=== PATIENT | female | born 1980 | race Caucasian/White ===

== ENCOUNTER 2017-07-06 12:36 | Emergency (ER) | payer MEDICAID, OTHER ==
[~2017-07-06] VITALS: Ht 165.1 cm; Wt 60.0 kg
[~2017-07-06 12:36] MED LIST: LEVO112T2 PO
[2017-07-06 12:37] VITALS: BP 99/53; PULSE 80; RESP 16; TEMP 97.6; O2SAT 98
--- NOTE | 2017-07-06 13:23 | RADRPT ---
EXAM DATE/TIME: 07/06/2017 13:03 [facility] COMPARISON: No previous studies available for comparison. INDICATIONS : Fell while rollerblading 1 hour ago. MEDICAL HISTORY : None. SURGICAL HISTORY : None. ENCOUNTER: Initial ACUITY: 1 day PAIN SCORE: 5/10 LOCATION: Left upper extremity wrist radial side FINDINGS: Three view examination of the left wrist demonstrates a comminuted intra-articular fracture of the di stal radius. There is angulation of the fracture on the lateral view. Possible small avulsion injury involving the ulnar styloid process. The carpal bones are grossly intact.. CONCLUSION: Intra-articular Colles' type fracture involving the distal radius. Petr Johnson MD on July 06, 2017 at 13:21 Board Certified Radiologist. This report was verified electronically.
[2017-07-06] MEDS ORDERED: ACETAMINOPHEN/HYDROcodone 325 MG/5 MG TAB PO ONE (13:45)
--- NOTE | 2017-07-06 13:53 | PD ---
HPI Chief Complaint: Musculoskeletal Complaint Time Seen by Provider: 13:05 Travel History International Travel<30 days: No Contact w/Intl Traveler<30days: No Traveled to known affect area: No History of Present Illness HPI This is a 37-year-old female here with left wrist pain after she fell while rollerblading onto an outstretched hand. Injury occurred prior to arrival. Denies paresthesia or weakness of the extremity. Reports pain in the wrist. Can freely move the fingers. Symptom severity is moderate. Pain is worse with attempted movement and slightly depressed. No other injuries. No head injury or loss consciousness. PFSH Past Medical History Medical History: Denies Significant Hx Asthma: Yes Thyroid Disease: Yes Influenza Vaccination: No ?: Not LMP: CURRENT Past Surgical History Surgical History: No Previous Surgery Social History Alcohol Use: Yes (COUPLE TIMES PER WEEK) Tobacco Use: Yes (1/2 PPD) Substance Use: No Allergies-Medications (Allergen,Severity, Reaction): Coded Allergies: Sulfa (Sulfonamide Antibiotics) (Unverified Allergy, Intermediate, HIVES, 07/06/17) Reported Meds & Prescriptions Reported Meds & Active Scripts Active Reported Levothyroxine (Levothyroxine Sodium) 112 Mcg Tab 112 Mcg PO DAILY Review of Systems Except as stated in HPI: all other systems reviewed are Neg General / Constitutional: No: Fever Eyes: No: Visual changes HENT: No: Headaches Cardiovascular: No: Chest Pain or Discomfort Respiratory: No: Shortness of Breath Gastrointestinal: No: Abdominal Pain Genitourinary: No: Dysuria Physical Exam Narrative GENERAL: Alert and well-appearing 29-year-old female. SKIN: Warm and dry. Superficial Abrasion to the right elbow. HEAD: Normocephalic. EYES: No injection or drainage. NECK: Supple. No midline spine tenderness. CARDIOVASCULAR: Regular rate and rhythm without murmurs, gallops, or rubs. RESPIRATORY: Breath sounds equal bilaterally. No accessory muscle use. GASTROINTESTINAL: Abdomen soft, non-tender, nondistended. MUSCULOSKELETAL: No cyanosis. Left upper extremity: Notable swelling to the left wrist. Palpable radial pulse. Patient can freely move the fingers. Normal sensation distally. Brisk cap refill. BACK: Nontender cervical, thoracic, lumbar spine. Without obvious deformity. No CVA tenderness. Data Data Last Documented VS Vital Signs Date Time Temp Pulse Resp B/P (MAP) Pulse Ox O2 Delivery O2 Flow Rate FiO2 07/06/17 12:37 97.6 80 16 99/53 (68) 98 Orders Orders Wrist, Complete ([id number]) (07/06/17 12:48) Splint Or Brace Apply/Monitor (07/06/17 13:36) Acetamin-Hydrocod 325-5 Mg (Cordova 5-325 (07/06/17 13:45) MDM Medical Decision Making Medical Screen Exam Complete: Yes Emergency Medical Condition: Yes Differential Diagnosis Fracture, sprain, dislocation Narrative Course 37-year-old female here with left wrist pain after she fell onto an outstretched hand. The extremity is neurovascularly intact. Palpable radial pulse. Good perfusion. Normal sensation. X-ray reveal an intra-articular Colles' type fracture involving the distal radius. Patient was placed in a sugar tong splint and sling by [place]. Patient is to follow-up with orthopedic this week. She was referred to the on-call orthopedic Dr. Hoang. In port and to follow-up with stress to patient. She will be given a prescription for Cordova. Return precautions were discussed. Diagnosis Primary Impression: Colles' fracture of left radius Qualified Codes: S52.532A - Colles' fracture of left radius, initial encounter for closed fracture Referrals: Alexx Hoang MD Orthopedist Additional Instructions: Splint is to remain in place until follow-up with worker. Sling to support the arm. Pain medication as needed. Return if he develops severe increasing pain, altered sensation, change in color of the fingers. Call tomorrow morning for a follow-up appointment with orthopedic doctor. You were given the name and number to Dr. Hoang the on-call orthopedist for hospital Disposition: 01 DISCHARGE HOME Condition: Stable Yeniefr Piper Thor MONACO Jul 06, 2017 13:53
[2017-07-06] MEDS ORDERED: IBUPROFEN 800 MG TAB PO ONE (14:00)
[2017-07-11] MEDS ORDERED: TRAM50TA PO (10:19)
== END 2017-07-06 14:08 | disposition home or self-care (01) ==
LOC: PHEFT 12:36
DX: S52.532A Colles' fracture of left radius, initial encounter for closed fracture (principal); J45.909 Unspecified asthma, uncomplicated; E07.9 Disorder of thyroid, unspecified; F17.200 Nicotine dependence, unspecified, uncomplicated; W18.30XA Fall on same level, unspecified, initial encounter; Y93.51 Activity, roller skating (inline) and skateboarding; Z88.2 Allergy status to sulfonamides; Z79.899 Other long term (current) drug therapy
CPT/HCPCS: 29125; 73110

== ENCOUNTER → 2017-07-14 | Day surgery (SDC) | payer MEDICAID ==
[~2017-07-14] VITALS: Ht 165.1 cm; Wt 61.9 kg
[~2017-07-14] MED LIST changes: +*morphine SULFATE 8 MG/ML PERIprocedure ONLY ONE; +ACETAMINOPHEN 1000 MG/100 ML 100 ML IV ONE; +CHLORHEXIDINE GLUCONATE 2 % 1 PACK (2 CLOTHS) TOPICAL PRN; +CHLORHEXIDINE GLUCONATE 4% SOLN 120 ML BTL TOPICAL SCH; +DEXAMETHASONE SOD PHOS 4 MG/ML VIAL IV ONE; +DO NOT ADM ANY ANTICOAGULANT DRUGS PRN; +GENTAMICIN SULFATE 80 MG/2 ML VIAL ONE; +HYDROmorphone HCL PF 2 MG/ML VIAL ONE; +KETOROLAC TROMETHAMINE 30 MG/ML (IVP) VIAL IV PUSH ONE; +KETOROLAC TROMETHAMINE 30 MG/ML (IVP) VIAL IVP ONE; +LACTATED RINGER'S 1000 ML INJ 2,000 ML IV ONE; +LACTATED RINGER'S 1000 ML IV PRN; +LIDOCAINE HCL 1% PF 5 ML SYRINGE OTHER ONE; +METOPROLOL TARTRATE 25 MG TAB PO PRN; +MIDAZOLAM HCL 2 MG/2 ML VIAL ONE; +MORPHINE SULFATE 4 MG/ML INJ IV PUSH PRN; +ONDANSETRON HCL 4 MG/2 ML VIAL IV ONE; +PERC5TAB12 PO; +POVIDONE IODINE 5% (ANTISEPSIS KIT) 4 APPLICATIONS EACH NARE PRN; +PROPOFOL 200 MG/20 ML AMP IV ONE; +SODIUM CHLORID 0.9% 500 ML IV PRN; +SODIUM CHLORIDE 0.9% FLUSH 10 ML FLUSH IV FLUSH PRN; +SODIUM CHLORIDE 0.9% FLUSH 10 ML FLUSH IV FLUSH SCH; +TRAM50TA PO; +VANCOMYCIN 1000 MG/NS 250 ML (for <70 kg) IV SCH; +VANCOMYCIN HCL 1000 MG VIAL ONE; +ZOFR8TAB PO; +ceFAZolin 2 GM PREMIX 50 ML IV SCH; +oxyCODONE/ACETAMINOPHEN 5 MG/325 MG TAB PO PRN
--- NOTE | 2017-07-14 12:18 | PD.OP ---
cc: Jeffrey Brewster Jr., MD Operative Report Date of Surgery: Jul 14, 2017 Preoperative Diagnosis: Left interarticular distal radius fracture Postoperative Diagnosis: Same Procedure: Open reduction internal fixation left wrist Anesthesia: Gen. Surgeon: Jeffrey Brewster Certified Genetic Counselor(s): JACINDA [place] The surgical procedure was assisted by my Advanced Registered Nurse Practitioner. My CHIEF AIRLINE RADIO OPERATOR presence was necessary throughout this case for the manipulation and positioning of the surgical extremity. My CHIEF AIRLINE RADIO OPERATOR was assisting me throughout the duration of this procedure. The skill set of an Advance Registered Nurse Practitioner was medically necessary to complete this procedure. During the surgical case, the appliance service technician was working at the back table and the Advance Registered Nurse Practitioner was directly assisting me. Resident Surgeon: none Operation and Findings: Patient was seen and evaluated preoperatively and found to have a LEFT intra- articular displaced distal radius fracture. Informed consent was obtained after detailed discussion of risk and benefits including bleeding, infection, injury to arteries, nerves, and blood vessels, weakness and numbness of hand, and tendon rupture. Informed consent was obtained. Patient received IV antibiotics prior to incision. Timeout procedure was performed. Operative extremity was prepped with alcohol followed by Hibiclens and draped usual sterile fashion. A standard volar approach to the distal radius was utilized. A 3 inch incision was made over the FCR tendon. Tendon sheath was opened. Pronator quadratus was elevated up. The fracture site was now visualized. The fracture did [] have intra-articular extension. Traction was applied. The articular surface was reduced. Fracture fragments were manipulated to achieve excellent reduction. K wires were used to hold provisional fixation. Fluoroscopy confirmed appropriate alignment of fracture. A Synthes 2 column variable angle distal radius plate was selected. Plate was provisionally fixed to bone with K wires. 2.7 cortical screws were used to compress plate to bone. Fluoroscopy confirmed appropriate alignment of fracture with well-placed hardware. Multiple 2.4 locking screws were now placed distally. Screws were predrilled and measured for appropriate length. 1 additional screws were placed into the shaft. K wires were removed. Final fluoroscopy revealed excellent of fracture with well-placed hardware. The wound was thoroughly irrigated with sterile saline. Subcutaneous tissue was closed with 3-0 Vicryl and skin was closed with 3-0 nylon. Sterile dressings were applied with Xeroform, 4 x 4, soft roll , and a well padded volar splint. Patient was awakened and transferred to recovery room in stable condition IMPLANTS USED Synthes 2 column variable angle distal radius plate. POSTP-OP PLAN OF ACTIVITY Weight bearing status: NWB Dressing: none dc home from PACU Jeffrey Brewster Jr., MD Jul 14, 2017 12:18
--- NOTE | 2017-07-14 13:25 | RADRPT ---
EXAM DATE/TIME: 07/14/2017 11:16 [facility] COMPARISON: No previous studies available for comparison. INDICATIONS : ORIF of the left wrist. MEDICAL HISTORY : Asthma. Smoker. SURGICAL HISTORY : section. ENCOUNTER: Initial ACUITY: 1 day PAIN SCORE: Non-responsive. LOCATION: Left wrist,. FINDINGS: Plate is seen bridging fracture distal radius. Alignment is anatomic.. CONCLUSION: Abdominal alignment Fidencio Peterson MD FACR on July 14, 2017 at 13:24 Board Certified Radiologist. This report was verified electronically.
[2017-07-14 14:02] VITALS: BP 112/65; PULSE 66; RESP 18; TEMP 97.2; O2SAT 98
== END | disposition home or self-care (01) ==
LOC: HSDC 06:16
PROVIDERS: ATTEND Orthopaedic Surgery
DX: S52.532A Colles' fracture of left radius, initial encounter for closed fracture (principal); J45.909 Unspecified asthma, uncomplicated; F17.290 Nicotine dependence, other tobacco product, uncomplicated; W19.XXXA Unspecified fall, initial encounter; Y93.51 Activity, roller skating (inline) and skateboarding
CPT/HCPCS: 01830; 25609; 73100; 76000; 86850; 86900; 86901; C1713; J0131; J0690; J1100; J1170; J1580; J1885; J2250; J2270; J2405; J3010; J7120; J3370